=== PATIENT | male | born 1970 | race Caucasian/White ===

== ENCOUNTER 2016-11-23 10:10 | Emergency (ER) | payer OTHER ==
[2016-11-23] MEDS ORDERED: ACETAMINOPHEN 325 MG TABLET (FP) PO ONE (10:18)
--- NOTE | 2016-11-23 10:18 | PDOC ---
History of Present Illness - General Chief Complaint: Injury Stated Complaint: LEFT 4TH FINGER INJURY Time Seen by Provider: 11/23/16 10:12 History Source: Patient Exam Limitations: No Limitations - History of Present Illness Initial Comments: 11/23/16 10:19 46y M no pmhx presents with finger injury. Pt was playing soft ball and dove for the ball and his L ring finger made contact with the ground and there was a visible deformity, he went to an urgent care who reduced it and referred the pt to the ED for further evaluation. Pt noted that there was some tingling at the tip of his finger intiially, after reduction the tingling improved but there was some increased soreness in his finger. Pt denies any other injuries. The pain is mostly at the L pip, there is no radiation of the pain. pt also endorses mild L hand pain mainly at the L 5th MCP. Pt last took motrin at 7am in anticipation of his softball game. Past History - Past Medical History Allergies/Adverse Reactions: Allergies Allergy/AdvReac Type Severity Reaction Status Date / Time Penicillins Allergy Verified 11/23/16 10:11 Home Medications: Ambulatory Orders Oxycodone HCl/Acetaminophen [Percocet 5-325 mg Tablet -] 1 combo PO Q6H PRN #20 tablet MDD 8 11/23/16 Review of Systems - Review of Systems Able to Perform ROS?: Yes Comments:: 11/23/16 10:22 Musculskelatal - +L ring finger pain no reported back pain, joint swelling skin - no reported bruising, erythema, neurological: +numbness/tingling of L ring finger tip no reported headache *Physical Exam - Physical Exam Comments: 11/23/16 10:26 GENERAL: The patient is awake, alert, and fully oriented, Nontoxic - in no acute distress. HEAD: Normocephalic, atraumatic. EXTREMITIES: L Ring finger - soft tissue swelling of PIP, pain to passive ROM, limited active ROM, sensation intact distally, cap refill <2 seconds, some crepitus with passive ROM. normal movement/rom of all other digits, mild ttp to 5th proximal phylanges/mcp (1/10), no tenderness or limitations of ROM of shoulder/elbow. SKIN: Warm, Dry, normal turgor No bruising present Procedures - Consent Consent obtained: Verbal - Splinting Splint Location: Left: Finger Pre-Proc Neuro Vasc Exam: normal Hand-Made Type: orthoglass Splint Type: Yes: Ulnar Post-Proc Neuro Vasc Exam: normal Nhan Bandage: 2", 4" Sling: Yes Complications: No Good repositioning: Yes Medical Decision Making - Medical Decision Making 11/23/16 10:29 suspect dislocation vs subluxation s/p reduction prior to arrival (pt had a picture on his phone of prereduction). possible fx and ligamentous injury will obtain xray 11/23/16 11:06 xray noted for communited minimall displaced fracture of the 4th and 5th proximal phylanges of left hand with good alignment pt placed in ulngar gutter for stabilization sling given to pt will hvae pt fu with dr. walker for possible surgical and definitive care. elevation, pain control I discussed the physical exam findings, ancillary test results and final diagnoses with the patient. I answered all of the patient's questions. The patient was satisfied with the care received and felt comfortable with the discharge plan and treatment plan. The patient will call their primary care physician within 24 hours to arrange follow-up and will return to the Emergency Department with any new, persistent or worsening symptoms. *DC/Admit/Observation/Transfer Diagnosis at time of Disposition: Fracture of proximal phalanx of finger of left hand - Discharge Dispostion Disposition: HOME Condition at time of disposition: Improved Admit: No - Prescriptions Prescriptions: Oxycodone HCl/Acetaminophen [Percocet 5-325 mg Tablet -] 1 combo PO Q6H PRN #20 tablet MDD 8 PRN Reason: Pain - Referrals Referrals: Rufus Walker MD [Staff Physician] - - Patient Instructions Printed Discharge Instructions: How to Use a Sling, DI for Finger Fracture Additional Instructions: Return to the emergency department immediately with ANY new, persistent or worsening symptoms including any numbness, tingling, persistent pain or other concerns Keep your arm elevated to minimize swelling. Take ibuprofen/percocet as needed for pain control. If you are taking percocet, do not drive. You MUST call and follow up with Dr. Walker on Thursday for further evaluation of your symptoms. Results were discussed with you. Please make sure your doctor reviews the results of your emergency evaluation. If you had any xrays during your visit, it was read preliminarily by myself, a Radiologist will review it and if there are any additional findings we will call you. Print Language: [place] CITIZEN
[2016-11-23 10:21] VITALS: BP 122/85; PULSE 77; TEMP 98.5; BMI 25.0
[2016-11-23] MEDS ORDERED: ACETAMINOPHEN 325 MG TABLET (FP) ONE (10:24)
== END 2016-11-23 11:10 | disposition home or self-care (01) ==
LOC: FER 10:10
PROC: 2W3KX1Z Immobilization of Left Finger using Splint (ICD-10-PCS; principal; 2016-11-23)
DX: S62.645A Nondisplaced fracture of proximal phalanx of left ring finger, initial encounter for closed fracture (principal); W22.8XXA Striking against or struck by other objects, initial encounter; Y93.64 Activity, baseball; Y92.320 Baseball field as the place of occurrence of the external cause
CPT/HCPCS: 73130-TC-LT; 73140-TC-LT; 99284-25

== ENCOUNTER 2016-11-26 13:25 | Day surgery (SDC) | payer OTHER ==
[2016-11-26 14:00] VITALS: BMI 25.0
[2016-11-26] MEDS ORDERED: LIDOCAINE HCL 2% (20ML MULTI-DOSE VIAL) NR ONE (15:38)
[2016-11-26] MEDS ORDERED: BUPIVACAINE HCL/PF 2.5 MG/ML - 30 ML VIAL IJ ONE (15:38)
[2016-11-26] MEDS ORDERED: PROPOFOL 20 ML ONE ×2 (16:27→16:53)
[2016-11-26] MEDS ORDERED: MIDAZOLAM HCL 2 MG/2 ML SINGLE DOSE VIAL ONE ×2 (16:27)
[2016-11-26] MEDS ORDERED: ceFAZolin SODIUM 1 GM VIAL ONE (16:42)
[2016-11-26] MEDS ORDERED: PROMETHAZINE HCL 25 MG/1 ML VIAL IVPUSH PRN (17:01)
[2016-11-26] MEDS ORDERED: ONDANSETRON 4 MG/2 ML VIAL IVPUSH PRN (17:01)
[2016-11-26] MEDS ORDERED: oxyCODONE HCL 5 MG TABLET PO PRN (17:01)
[2016-11-26] MEDS ORDERED: LACTATED RINGERS SOLUTION 1,000 ML IV SCH (17:15)
[2016-11-26 17:39] VITALS: TEMP 97.8
[2016-11-26 18:05] VITALS: BP 112/75; PULSE 52
--- NOTE | 2016-11-28 08:49 | OP ---
DATE OF OPERATION: 11/26/2016 PREOPERATIVE DIAGNOSES: 1. Left small finger proximal phalanx fracture. 2. Left ring finger proximal phalanx fracture. POSTOPERATIVE DIAGNOSES: 1. Left small finger proximal phalanx fracture. 2. Left ring finger proximal phalanx fracture. OPERATIVE PROCEDURES: 1. Closed reduction and percutaneous pinning of left small finger proximal phalanx fracture. 2. Closed reduction and percutaneous pinning of left ring finger proximal phalanx fracture. SURGEON: Rufus Cole MD ANESTHESIA: Local with sedation. COMPLICATIONS: None. ESTIMATED BLOOD LOSS: Minimal. INDICATIONS FOR PROCEDURE: The patient is a 46-year-old male with the above findings here today for operative treatment. Risks, benefits, and alternatives were discussed with the patient at length, and proper informed consent was obtained. PROCEDURE: After proper identification of the patient and correct operative site, the patient was brought to the operating room and placed supine on the operating room table. All prominences were well padded. Sedation was given by the anesthesiologist. Local anesthesia was given with 2% lidocaine. The left upper extremity was prepped and draped in the usual sterile fashion. Under live fluoroscopy, fractures were reduced so that the clinical alignment was achieved including rotational malalignment. Once this was accomplished, multiple K-wires were placed into each proximal phalanx to secure the reduction. X-rays were taken to confirm satisfactory reduction of fractures, as well as proper placement and sizing of hardware. The pins were bent and cut short outside of the skin. Sterile dressings were applied. A splint was placed. The patient was reversed from anesthesia and brought to the recovery room in stable condition. He tolerated the procedure well. RUFUS COLE M.D. CAROLINE/[id number]
== END 2016-11-26 18:05 | disposition home or self-care (01) ==
LOC: FASU 13:25
PROVIDERS: ATTEND Orthopaedic Surgery Hand Surgery
PROC: 0PSV34Z Reposition Left Finger Phalanx with Internal Fixation Device, Percutaneous Approach (ICD-10-PCS; principal; 2016-11-26 15:00)
DX: S62.615A Displaced fracture of proximal phalanx of left ring finger, initial encounter for closed fracture (principal); S62.617A Displaced fracture of proximal phalanx of left little finger, initial encounter for closed fracture; X58.XXXA Exposure to other specified factors, initial encounter; Y93.9 Activity, unspecified; Y92.9 Unspecified place or not applicable
CPT/HCPCS: 73130-TC-LT